=== PATIENT | female | born 1995 | race Caucasian/White ===

== ENCOUNTER 2020-07-25 12:53 | Emergency (ER) | payer OTHER ==
[~2020-07-25] VITALS: Ht 149.9 cm; Wt 44.0 kg
[~2020-07-25 12:53] MED LIST: CEPHALEXIN250 MG/51 OR; METRONIDAZOL250 MG PO; NO HOME MEDS
[2020-07-25 13:36] LABS: HEMATOCRIT 34.1 % (37.0-47.0); IMMATURE GRANULOCYTES 0.3 % (0.0-5.0); MEAN CELL VOLUME 82.4 fL CALC (80.0-100.0); MEAN CORPUSCULAR HGB 26.3 pG CALC (26.0-32.0); NEUT# 6.77 thou/uL (2.00-7.15); RED BLOOD COUNT 4.14 mill/uL (4.20-5.60); RED CELL DISTRI WIDTH 13.7 % (11.5-15.5)
[2020-07-25 13:40] LABS: HEMOGLOBIN 10.9 g/dl (12.0-16.0)
[2020-07-25 13:47] LABS: ALKALINE PHOSPHATASE 57 u/l (38-126); ANION GAP 8 (6-22 (CALC)); BILIRUBIN, TOTAL 0.3 mg/dL (0.0-1.4); BUN 9 mg/dL (7-17); BUN/CREATININE RATIO 14 (12-20 (CALC)); CARBON DIOXIDE 25 mmol/l (22-30); CHLORIDE 110 mmol/l (95-108); CREATININE 0.7 mg/dL (0.5-1.0); GFR > 60 ML/MIN (>=60 (CALC)); GFR FOR AFR.AMER. > 60 ML/MIN (>=60 (CALC)); LIPASE 56 u/l (23-300); SGOT/AST 20 u/l (14-36); SODIUM 139 mmol/l (137-146); TOTAL PROTEIN 6.4 g/dL (6.3-8.2)
[2020-07-25 13:51] LABS: URINE BILIRUBIN - DIPSTICK NEGATIVE (NEGATIVE); URINE BLOOD DIPSTICK NEGATIVE (NEGATIVE); URINE COLOR YELLOW; URINE GLUCOSE - DIPSTICK NEGATIVE (NEGATIVE); URINE KETONE NEGATIVE (NEGATIVE); URINE PROTEIN - DIPSTICK NEGATIVE (NEG-TRACE); URINE SPECIFIC GRAVITY 1.025; URINE UROBILINOGEN - DIPSTICK 0.2 E.U./dL (0.2)
[2020-07-25 13:52] LABS: URINE BACTERIA MANY hpf; URINE EPITHELIAL CELLS MODERATE EPI/hpf (0-FEW); URINE LEUK ESTERASE SMALL (NEGATIVE); URINE NITRITE - DIPSTICK POSITIVE (Negative)
[2020-07-25] MEDS ORDERED: ZOFRAN4 MG/TAB PO (15:37)
[2020-07-25] MEDS ORDERED: BACTRIM DS1 TAB PO (15:37)
[2020-07-25] MEDS ORDERED: ULTRAM50 MG PO (15:37)
[2020-07-25 15:40] VITALS: BP 103/55
== END 2020-07-25 16:10 | disposition home or self-care (01) ==
LOC: ED 12:53
DX: N39.0 Urinary tract infection, site not specified (principal); B96.20 Unspecified Escherichia coli [E. coli] as the cause of diseases classified elsewhere; N83.209 Unspecified ovarian cyst, unspecified side; Z20.828 Contact with and (suspected) exposure to other viral communicable diseases